=== PATIENT | male | born 1975 | race Caucasian/White ===

== ENCOUNTER 2020-09-19 14:54 | Outpatient (CLI) | payer BC | END 2020-09-19 14:55 | disposition home or self-care (01) | LOC: BICMRI 14:54 | PROVIDERS: ATTEND Orthopaedic Surgery Hand Surgery | DX: S62.002A Unspecified fracture of navicular [scaphoid] bone of left wrist, initial encounter for closed fracture (principal); M94.232 Chondromalacia, left wrist; M65.9 Synovitis and tenosynovitis, unspecified ==

== ENCOUNTER 2020-11-15 14:33 | Outpatient (CLI) | payer BC ==
[2020-11-15 16:08] LABS: #Basophils 0.1 10x3/uL (0.0-0.2); #Eosinphils 0.3 10x3/uL (0.0-0.5); #Monocytes 0.7 10x3/uL (0.0-1.1); #Neutrophils 3.3 10x3/uL (1.5-8.4); %Basophils 0.7 % (0.0-2.0); %Eosinophils 4.9 % (0.0-6.0); %Lymphocytes 35.5 % (18.0-47.0); %Monocytes 10.4 % (0.0-10.0); %Neutrophils 48.2 % (40.0-75.0); Hemoglobin 14.4 g/dL (13.5-17.5); Mean Corpuscular HGB CONC 33.8 g/dL (32.0-36.0); Mean Corpuscular Volume 85.9 fl (81.2-95.1); Mean Platelet Volume 9.5 fl (7.4-10.4); Platelet Count 315 10x3/uL (150-450); RBC Distribution Width 12.9 % (11.5-14.5); Red Blood Cell (RBC) Count 4.96 10x6/uL (4.32-5.72); White Blood Cell (WBC) Count 6.9 10x3/uL (3.5-10.5)
[2020-11-15 16:26] LABS: Anion Gap 12 mmol/L (10-20); BUN (Urea Nitrogen) 9 mg/dL (8.9-20.6); Calc. Creatinine Clearance 0 mL/min (70-130); Calcium 9.5 mg/dL (7.8-10.44); Carbon Dioxide 25 mmol/L (22-29); Chloride 103 mmol/L (98-107); Glucose 148 mg/dL (70-105); Potassium 4.4 mmol/L (3.5-5.1); Sodium 136 mmol/L (136-145)
[2020-11-16 13:03] LABS: SARS-CoV-2 PCR by NAA Not Detected (NotDetected)
== END 2020-11-15 14:34 | disposition home or self-care (01) ==
LOC: LABBT 14:33
PROVIDERS: ATTEND Orthopaedic Surgery Hand Surgery
DX: Z01.818 Encounter for other preprocedural examination (principal); M67.432 Ganglion, left wrist; M65.4 Radial styloid tenosynovitis [de Quervain]; Z20.822 Contact with and (suspected) exposure to COVID-19
CPT/HCPCS: 80048; 85025; 93005; 93010; U0003; U0005

== ENCOUNTER 2020-11-20 07:25 | Day surgery (SDC) | payer BC ==
[2020-11-16 13:34] VITALS: BMI 29.9
[2020-11-20] MEDS ORDERED: Bupivacaine PF 0.5% 30 ML VIAL ONE (09:53)
[2020-11-20] MEDS ORDERED: Betamet Acet/Betamet Na Ph 30 MG/5 ML VIAL ONE (09:53)
[2020-11-20] MEDS ORDERED: Bacitracin Zinc Ointment 30 gm TUBE ONE (09:53)
[2020-11-20] MEDS ORDERED: Clindamycin/D5W 900 mg/50 ml Premix Bag ONE (10:31)
[2020-11-20] MEDS ORDERED: Fentanyl 100 MCG/2 ML VIAL ONE ×2 (10:35)
[2020-11-20] MEDS ORDERED: Iothalamate Meglumine 60% 50 ML VIAL FS ONE (10:35)
[2020-11-20] MEDS ORDERED: Morphine 10 MG/ML VIAL ONE (10:35)
[2020-11-20] MEDS ORDERED: Midazolam HCl 2 mg/2 ml Vial ONE (10:50)
[2020-11-20] MEDS ORDERED: Ondansetron PF 4 MG/2 ML Vial ONE (10:55)
[2020-11-20] MEDS ORDERED: Ketorolac Tromethamine 30 MG/ML VIAL ONE (10:55)
[2020-11-20] MEDS ORDERED: PROPOFOL 200 MG/20 ML VIAL ONE (10:55)
[2020-11-20] MEDS ORDERED: Lidocaine 1% PF 5 ML VIAL ONE (10:55)
[2020-11-20] MEDS ORDERED: Ondansetron ODT 4 MG TAB ONE (14:58)
== END 2020-11-20 15:10 | disposition home or self-care (01) ==
LOC: SDC 07:25
PROVIDERS: ATTEND Orthopaedic Surgery Hand Surgery
PROC: 01N60ZZ Release Radial Nerve, Open Approach (ICD-10-PCS; principal; 2020-11-20)
PROC: 0LN60ZZ Release Left Lower Arm and Wrist Tendon, Open Approach (ICD-10-PCS; principal; 2020-11-20)
PROC: 0LB60ZZ Excision of Left Lower Arm and Wrist Tendon, Open Approach (ICD-10-PCS; principal; 2020-11-20)
DX: M67.432 Ganglion, left wrist (principal); G56.32 Lesion of radial nerve, left upper limb; M65.4 Radial styloid tenosynovitis [de Quervain]; I10 Essential (primary) hypertension; E78.5 Hyperlipidemia, unspecified; J30.2 Other seasonal allergic rhinitis; E11.9 Type 2 diabetes mellitus without complications; E66.9 Obesity, unspecified; Z68.30 Body mass index [BMI] 30.0-30.9, adult; Z79.4 Long term (current) use of insulin; Z79.82 Long term (current) use of aspirin; Z79.899 Other long term (current) drug therapy; Z88.0 Allergy status to penicillin
CPT/HCPCS: 36416; 88304; J0702; J1885; J2250; J2270; J2405; J2704; J3010; J3490; Q0162; Q9961; S0020

== ENCOUNTER 2021-11-12 18:00 | Outpatient (CLI) | payer BC | END 2021-11-12 18:01 | disposition home or self-care (01) | LOC: SLEEPLAB 18:00 | PROVIDERS: ATTEND Family Medicine | DX: G47.33 Obstructive sleep apnea (adult) (pediatric) (principal); R51.9 Headache, unspecified; E11.9 Type 2 diabetes mellitus without complications | CPT/HCPCS: 95800 ==